=== PATIENT | female | born 2000 | race Two or more races ===

== ENCOUNTER 2020-10-29 06:00 | Day surgery (SDC) | payer OTHER | END 2020-10-29 17:05 | disposition home or self-care (01) | LOC: CIR.AMB 06:00 | PROVIDERS: ATTEND Specialist | DX: O02.1 Missed abortion (principal); Z20.822 Contact with and (suspected) exposure to COVID-19 ==

== ENCOUNTER 2020-10-31 09:30 | Emergency (ER) | payer OTHER ==
[~2020-10-31] VITALS: Ht 167.6 cm; Wt 86.2 kg
== END 2020-10-31 14:37 | disposition home or self-care (01) ==
LOC: ER 09:30
DX: O73.1 Retained portions of placenta and membranes, without hemorrhage (principal); R10.2 Pelvic and perineal pain

== ENCOUNTER 2021-08-08 20:24 | Emergency (ER) | payer OTHER ==
[~2021-08-08] VITALS: Ht 165.1 cm; Wt 78.5 kg
[2021-08-08] MEDS ORDERED: PRENA1 TRUE CO1 EACH PO (22:54)
[2021-08-08] MEDS ORDERED: NITROFURANTOIN100 MG PO (22:54)
== END 2021-08-08 22:56 | disposition home or self-care (01) ==
LOC: ER 20:24
DX: N39.0 Urinary tract infection, site not specified (principal); Z34.90 Encounter for supervision of normal pregnancy, unspecified, unspecified trimester

== ENCOUNTER → 2022-01-28 | Emergency (ER) | payer OTHER ==
[~2022-01-28] VITALS: Ht 165.1 cm; Wt 87.5 kg
[~2022-01-28] MED LIST: NITROFURANTOIN100 MG PO; PRENA1 TRUE CO1 EACH PO
== END | disposition home or self-care (01) ==
LOC: ER 14:22
DX: O98.512 Other viral diseases complicating pregnancy, second trimester (principal); Z3A.26 26 weeks gestation of pregnancy; Z20.822 Contact with and (suspected) exposure to COVID-19; B34.9 Viral infection, unspecified

== ENCOUNTER 2022-02-12 20:35 | Outpatient (CLI) | payer OTHER | END 2022-02-13 15:25 | disposition home or self-care (01) | LOC: OBS/DEL 20:35 | PROVIDERS: ATTEND Specialist | DX: O26.893 Other specified pregnancy related conditions, third trimester (principal); Z3A.31 31 weeks gestation of pregnancy ==

== ENCOUNTER 2022-03-28 10:59 | Inpatient (IN) | payer OTHER ==
[~2022-03-28] VITALS: Ht 165.1 cm; Wt 91.6 kg
[2022-03-28] MEDS ORDERED: AMPICILLIN SOD500 MG IM (12:01)
== END 2022-03-30 16:11 | DRG 807 ==
LOC: LDR 10:59 → OB/GYN 03-29 01:29
PROVIDERS: ADMIT Specialist; ATTEND Specialist
PROC: 10E0XZZ Delivery of Products of Conception, External Approach (ICD-10-PCS; principal; 2022-03-28)
PROC: 0W8NXZZ Division of Female Perineum, External Approach (ICD-10-PCS; 2022-03-28)
PROC: 4A1HXCZ Monitoring of Products of Conception, Cardiac Rate, External Approach (ICD-10-PCS; 2022-03-28)
DX: O99.824 Streptococcus B carrier state complicating childbirth (principal); Z37.0 Single live birth; Z3A.37 37 weeks gestation of pregnancy; Z20.822 Contact with and (suspected) exposure to COVID-19